=== PATIENT | male | born 2000 | race Caucasian/White ===

== ENCOUNTER 2023-07-18 14:27 | Emergency (ER) | payer OTHER, BC ==
[2023-07-18] MEDS: Lidocaine 4% 1 each Patch TOP ONE (14:49)
== END 2023-07-18 16:12 | disposition home or self-care (01) ==
LOC: MW.ED 14:27
DX: M79.642 Pain in left hand (principal); Z75.8 Other problems related to medical facilities and other health care; V49.49XA Driver injured in collision with other motor vehicles in traffic accident, initial encounter; Y92.410 Unspecified street and highway as the place of occurrence of the external cause
CPT/HCPCS: 70450; 71045; 72125; 73130; 99284; A9270; 99283

== ENCOUNTER 2025-02-19 01:28 | Emergency (ER) | payer BC, OTHER ==
[2025-02-19] MEDS: Amoxicillin/Clavulanate K 875-125 MG Tab PO ONE (01:55)
[2025-02-19] MEDS ORDERED: Rabies Immune Globulin/PF (HyperRAB) 300 UNIT/ML 1 ML SDV IM STA (02:10)
[2025-02-19] MEDS: Rabies Immune Globulin/PF (HyperRAB) 300 UNIT/ML 5 ML SDV IM ONE (02:11)
[2025-02-19] MEDS: Rabies Vaccine (Avian) 2.5 Unit Inj Kit IM ONE ×2 (02:20→02:35)
[2025-02-19] MEDS: Rabies Immune Globulin/PF (HyperRAB) 300 UNIT/ML 1 ML SDV IM STA (02:36)
[2025-02-19] MEDS: Rabies Immune Globulin/PF (HyperRAB) 300 UNIT/ML 5 ML SDV IM STA (02:37)
== END 2025-02-19 03:09 | disposition home or self-care (01) ==
LOC: MW.ED 01:28
DX: S61.259A Open bite of unspecified finger without damage to nail, initial encounter (principal); Z23 Encounter for immunization; W55.01XA Bitten by cat, initial encounter
CPT/HCPCS: 90375; 90471; 90675; 96372; 99283; A9270